=== PATIENT | male | born 1960 | race Caucasian/White ===

== ENCOUNTER → 2018-09-28 | Outpatient (CLI) | payer OTHER ==
--- NOTE | 2018-09-28 17:24 | RAD ---
EXAM: AP, lateral and lumbosacral spot views with bilateral oblique views of the lumbar spine DATE: 09/28/2018 12:00 AM INDICATION: Low back pain COMPARISON: 09/27/2014 FINDINGS: For the purposes of this report there are 5 nonrib-bearing lumbar-type vertebral bodies. Vertebral body heights are preserved. No evidence for acute fracture. Anterior endplate osteophytes are seen. Multilevel facet degenerative changes, severe at L2-3 and below. Mild to moderate multilevel disc height loss most prominent at L2-3 and L3-4. Straightening of the normal lumbar lordosis. Rightward curvature of the lumbar spine apex L2-3. No spondylolisthesis. No definite pars defects are seen on the oblique views. Bilateral neural foraminal narrowing is seen to various degrees at L2-3 and below, most prominent appearance at L3-4. IMPRESSION: 1. Multilevel spondylosis as above 2. Negative acute fracture or subluxation. Electronically signed by: David Garcia MD (09/28/2018 5:21 PM) [facility]
== END | disposition home or self-care (01) ==
LOC: DXRAD 14:45
PROVIDERS: ATTEND Physician Assistant
DX: M47.26 Other spondylosis with radiculopathy, lumbar region (principal); M48.061 Spinal stenosis, lumbar region without neurogenic claudication; M25.78 Osteophyte, vertebrae; R29.890 Loss of height
CPT/HCPCS: 72110

== ENCOUNTER → 2019-05-31 | Outpatient (CLI) | payer OTHER ==
--- NOTE | 2019-05-31 16:49 | RAD ---
3 view study of the right knee Clinical indications: Right knee pain. FINDINGS: No acute fracture or dislocation or lytic process is seen. There is moderate degenerative spurring without significant joint space narrowing of the lateral tibiofemoral joint compartment. There is moderate spurring and mild joint space narrowing of the patellofemoral joint compartment. The medial tibiofemoral joint compartment is unremarkable. No significant swelling of the suprapatellar bursa is seen to indicate a joint effusion radiographically. IMPRESSION: Bicompartmental primary degenerative osteoarthritis of the right knee. Electronically signed by: Kyle Hopper MD (05/31/2019 4:45 PM) [facility] [place]
== END | disposition home or self-care (01) ==
LOC: DXRAD 14:16
PROVIDERS: ATTEND Family Medicine
DX: M17.11 Unilateral primary osteoarthritis, right knee (principal)
CPT/HCPCS: 73560